=== PATIENT | male | born 1950 | race Caucasian/White ===

== ENCOUNTER 2018-09-24 08:13 | Emergency (ER) | payer MEDICARE ==
[~2018-09-24] VITALS: Ht 172.7 cm; Wt 74.8 kg
[~2018-09-24 08:13] MED LIST: ASPIRIN EC81 MG PO; FENOFIBRATE160 MG PO; FISH OIL 1,0001 EAC2 PO; LISINOPRIL10 MG PO; METFORMIN HCL500 MG PO; OMEPRAZOLE20 MG PO; VITAMIN D32000 UNIT PO
[2018-09-24] MEDS ORDERED: COZAAR25 MG PO (08:28)
[2018-09-24] MEDS ORDERED: CORMAX50 ML TOP (08:29)
[2018-09-24] MEDS ORDERED: GLIPIZIDE5 MG PO (08:31)
[2018-09-24] MEDS ORDERED: DOXYCYCLINE MO100 MG PO (08:32)
== END 2018-09-24 10:30 | disposition home or self-care (01) ==
LOC: ED 08:13
DX: R04.0 Epistaxis (principal); I10 Essential (primary) hypertension; E11.9 Type 2 diabetes mellitus without complications; Z90.49 Acquired absence of other specified parts of digestive tract; Z79.82 Long term (current) use of aspirin; Z79.84 Long term (current) use of oral hypoglycemic drugs; Z79.899 Other long term (current) drug therapy
CPT/HCPCS: 99283

== ENCOUNTER 2018-09-29 00:06 | Emergency (ER) | payer MEDICARE ==
[~2018-09-29] VITALS: Ht 172.7 cm; Wt 74.8 kg
[~2018-09-29 00:06] MED LIST changes: +CORMAX50 ML TOP; +COZAAR25 MG PO; +DOXYCYCLINE MO100 MG PO; +GLIPIZIDE5 MG PO
--- OUTSIDE RECORDS SUMMARY | 2018-09-29 00:10 | XMS ---
PreManage Notification: SARAHI GARRIDO Security Regulatory Coordinator Events No recent Security Events currently on file CRITERIA MET - [facility] - 2 Visits in 30 Days CARE PROVIDERS Fernando Morales MD PHONE: Unknown [place] has no Care Guidelines for this patient. ENika VISIT COUNT (12 MO.) 2 [facility] TOTAL 2 NOTE: Visits indicate total known visits. ED/UCC VISIT TRACKING (12 MO.) 09/29/2018 00:06 [facility] TYPE: Emergency COMPLAINT: - NOSE BLEED 09/24/2018 08:13 [facility] TYPE: Emergency COMPLAINT: - NOSE BLEED/NON INJURY DIAGNOSES: - Other terminal clerk (current) drug therapy - Epistaxis - Essential (primary) hypertension - Type 2 diabetes mellitus without complications - terminal clerk (current) use of oral hypoglycemic drugs - Acquired absence of other specified parts of digestive tract - terminal clerk (current) use of aspirin INPATIENT VISIT TRACKING (12 MO.) No inpatient visits to display in this time frame [email or web address]
[2018-09-29] MEDS ORDERED: KEFLEX500 MG PO (02:09)
== END 2018-09-29 02:38 | disposition home or self-care (01) ==
LOC: ED 00:06
PROC: 093K7ZZ Control Bleeding in Nasal Mucosa and Soft Tissue, Via Natural or Artificial Opening (ICD-10-PCS; principal; 2018-09-29)
DX: R04.0 Epistaxis (principal); I10 Essential (primary) hypertension; E11.9 Type 2 diabetes mellitus without complications; Z87.891 Personal history of nicotine dependence; Z79.84 Long term (current) use of oral hypoglycemic drugs; Z79.82 Long term (current) use of aspirin; Z79.899 Other long term (current) drug therapy
CPT/HCPCS: 30903; 80053; 85025; 85610; 85730; 99283-25

== ENCOUNTER 2024-10-20 20:00 | Inpatient (IN) | payer OTHER, MEDICARE ==
[~2024-10-20] VITALS: Ht 172.7 cm; Wt 73.1 kg
[~2024-10-20 20:00] MED LIST changes: +CLOBETASOL PROP50 ML TOP; -CORMAX50 ML TOP; +CYMBALTA60 MG PO; +HYZAAR 100-251 EACH PO; +KEFLEX500 MG PO
[2024-10-20] MEDS ORDERED: IBLOOD GLUCOSE TEST STRIP 1 EA TEST XX ONE (20:15)
[2024-10-20 20:17] LABS: HEMATOCRIT 40.8 % (35.0-50.0); HEMOGLOBIN 13.6 g/dL (12.0-18.0); MCH 25.9 (27-36); MCHC 33.4 g/dl (30-36); MCV 77.5 fl (81-99); PLATELET COUNT 168 K/uL (140-440); RBC 5.27 M/ul (4.3-5.7); RDW 17.3 (10.5-15.0)
[2024-10-20] MEDS ORDERED: ZITUVIO100 MG PO (20:17)
[2024-10-20] MEDS ORDERED: LIPITOR20 MG PO (20:17)
[2024-10-20] MEDS ORDERED: JARDIANCE25 MG PO (20:18)
[2024-10-20] MEDS ORDERED: PROSCAR5 MG PO (20:20)
[2024-10-20] MEDS ORDERED: HYDROCHLOROTHIA25 MG PO (20:22)
[2024-10-20] MEDS ORDERED: LOSARTAN POTAS100 MG PO (20:22)
[2024-10-20] MEDS ORDERED: METFORMIN HCL1000 M1 PO (20:23)
[2024-10-20] MEDS ORDERED: EPLERENONE25 MG PO (20:24)
[2024-10-20] MEDS ORDERED: VIAGRA100 MG PO (20:24)
[2024-10-20 20:36] LABS: ALBUMIN/GLOBULIN RATIO 0.65 (1.1-2.4); ANION GAP 12.9 (7-21); BILIRUBIN, TOTAL 0.4 mg/dL (0.2-1.0); BUN/CREATININE RATIO 18.86 (6.0-28.6); CALCIUM 8.5 mg/dL (8.5-10.1); CREATININE, SERUM 2.12 mg/dL (0.70-1.30); POTASSIUM 3.9 mmol/L (3.5-5.1); PROTEIN, TOTAL 7.6 g/dL (6.4-8.2)
[2024-10-20 20:40] LABS: BANDS, MANUAL DIFF 2; BASOPHILS, MANUAL DIFF 2; EOSINOPHILS, MANUAL DIFF 15; LYMPHOCYTES, MANUAL DIFF 23; MONOCYTES, MANUAL DIFF 9; NEUTROPHILS, MANUAL DIFF 49
[2024-10-20 20:42] LABS: INR 1.07 (0.80-1.30); PARTIAL THROMBOPLASTIN TIME 24.5 Sec (22.9-41.3); PROTIME 13.2 Sec (11.2-14.2)
[2024-10-20 21:11] LABS: BILIRUBIN, URINE NEGATIVE (negative); BLOOD/HGB, URINE NEGATIVE (Negative); KETONE, URINE NEGATIVE (Negative); LEUK ESTERASE, URINE NEGATIVE (negative); NITRITE, URINE NEGATIVE (negative)
[2024-10-20 21:25] LABS: AMPHETAMINES, URINE NEGATIVE (NEGATIVE); BARBITURATES, URINE NEGATIVE (NEGATIVE); BENZODIAZEPINE, URINE NEGATIVE (NEGATIVE); BUPRENORPHINE, URINE NEGATIVE (NEGATIVE); CANNABINOID, URINE NEGATIVE (NEGATIVE); COCAINE, URINE NEGATIVE (NEGATIVE); ECSTASY, URINE NEGATIVE (NEGATIVE); FENTANYL, URINE NEGATIVE (NEGATIVE); METHADONE, URINE NEGATIVE (NEGATIVE); OPIATES, URINE NEGATIVE (NEGATIVE); OXYCODONE, URINE NEGATIVE (NEGATIVE); PHENCYCLIDINE, URINE NEGATIVE (NEGATIVE)
[2024-10-20] MEDS ORDERED: LACTATED RINGER'S 1,000 ML IV ONE (21:30)
[2024-10-20] MEDS ORDERED: ASPIRIN 81 MG CHEW PO ONE (22:30)
[2024-10-20] MEDS ORDERED: CLOPIDOGREL BISULFATE 75 MG TAB PO ONE (22:30)
[2024-10-21] VITALS (8 sets, daily range): BP systolic 107–138; BP diastolic 65–76
[2024-10-21] MEDS ORDERED: ACETAMINOPHEN 325 MG TAB PO PRN ×2 (02:15→08:30)
[2024-10-21] MEDS ORDERED: ASPIRIN 325 MG TAB PO ONE (02:15)
[2024-10-21] MEDS ORDERED: ondansetron HCL 4 MG/2 ML VIAL IV PRN ×2 (02:15→08:30)
--- NOTE | 2024-10-21 04:00 | NUR ---
PATIENT ADMISSION COMPLETED. PATIENT IS ALERT AND ORIENTED X4. NIH AT THIS TIME IS 2 DUE TO (1) SLIGHT FACIAL DROOP NOTED WHEN PATIENT SMILED AND (2) FOR PATIENT HAVING SLIGHTLY SLOW SPEECH. SPEECH IS SLIGHTLY SLOW, BUT CAN BE VERY WELL UNDERSTOOD. PATIENT DENIES ANY PAIN AT THIS TIME. PATIENT IS ON TELE #1 AND IN SINUS RHYTHM, HEART TONES ARE WITH NORMAL S1-S2. PATIENT IS ON ROOM AIR AT THIS TIME, LUNG SOUNDS ARE CLEAR THROUGHOUT, CPOX AT BEDSIDE. CMS INTACT. PATIENT WITHOUT FURTHER NEEDS AT THIS TIME. CALL LIGHT AND PERSONAL BELONGINGS ARE WITHIN REACH. IV TO LAC FLUSHED WITH 10ML OF NS, DRESSING INTACT AND IV IS SALINE LOCKED.
[2024-10-21 05:43] LABS: BASOPHILS 0.7 % (0-2); EOSINOPHILS 21.6 % (0-6); HEMATOCRIT 36.3 % (35.0-50.0); HEMOGLOBIN 12.4 g/dL (12.0-18.0); LYMPHOCYTES 17.2 % (24-44); MCH 26.1 (27-36); MCHC 34.1 g/dl (30-36); MCV 76.4 fl (81-99); MONOCYTES 13.5 % (0-12); PLATELET COUNT 149 K/uL (140-440); RBC 4.75 M/ul (4.3-5.7); RDW 17.5 (10.5-15.0)
[2024-10-21 06:01] LABS: ALBUMIN 2.7 g/dL (3.4-5.0); ALBUMIN/GLOBULIN RATIO 0.69 (1.1-2.4); ANION GAP 11.9 (7-21); BILIRUBIN, TOTAL 0.4 mg/dL (0.2-1.0); BUN/CREATININE RATIO 19.76 (6.0-28.6); CALCIUM 8.8 mg/dL (8.5-10.1); CREATININE, SERUM 1.72 mg/dL (0.70-1.30); POTASSIUM 3.9 mmol/L (3.5-5.1); PROTEIN, TOTAL 6.6 g/dL (6.4-8.2)
[2024-10-21] MEDS ORDERED: Insulin Regular, Human 100 UNIT/ML ML SUB-Q SCH (07:00)
[2024-10-21] MEDS ORDERED: IBLOOD GLUCOSE TEST STRIP 1 EA TEST VI SCH ×3 (07:00→12:00)
--- NOTE | 2024-10-21 07:29 | NUR ---
RECIEVED SHIFT ASSESSMENT. PT IS RESTING IN BED, EYES CLOSED, BREATHING EVEN AND UNLABORED. CALL LIGHT IN REACH.
--- NOTE | 2024-10-21 08:14 | NUR ---
HOURLY ROUNDING. PATIENT IS CURRENLLY IN BED. BOARD HAS BEEN UPDATED AND CALL LIGHT HAS BEEN PLACED WITHIN REACH AND GLUCOSE HAS BEEN CHARTED. (119). 500ML WAS IN PATIENTS URINAL. NO REQUEST FROM PATIENT.
[2024-10-21] MEDS ORDERED: DEXTROSE 5% 1,000 ML IV PRN (08:30)
[2024-10-21] MEDS ORDERED: DEXTROSE 50% 50 ML SYR IV PRN ×2 (08:30)
[2024-10-21] MEDS ORDERED: GLUCAGON,HUMAN RECOMBINANT 1 MG/ML VIAL SUB-Q PRN (08:30)
[2024-10-21] MEDS ORDERED: IBLOOD GLUCOSE TEST STRIP 1 EA TEST XX PRN (08:30)
[2024-10-21 08:44] LABS: CHOLESTEROL/HDL RATIO 2.6
[2024-10-21] MEDS ORDERED: CLOPIDOGREL BISULFATE 75 MG TAB PO SCH (09:00)
[2024-10-21] MEDS ORDERED: ASPIRIN 325 MG TAB PO SCH (09:00)
--- NOTE | 2024-10-21 09:30 | EKG ---
[facility] [address] [facility] [facility] [place] [address] Signed Normal sinus rhythm Low voltage QRS Inferior infarct (cited on or before 20-OCT-2024) Abnormal ECG When compared with ECG of 23-SEP-2016 16:23, Sinus bradycardia is no longer present Confirmed by Kaley Sexton MD () on 10/21/2024 9:29:56 AM Electronically Signed By: KALEY SEXTON MD 10/21/24 0930 PATIENT NAME: RADHIKASARAHI Electrocardiogram DATE OF : 46 PHYSICIAN: KALEY SEXTON MD REPORT #: [id number] REPORT IS CONFIDENTIAL AND NOT TO BE RELEASED WITHOUT AUTHORIZATION
[2024-10-21] MEDS ORDERED: EMPAGLIFLOZIN 25 MG TAB PO SCH (09:42)
[2024-10-21] MEDS ORDERED: DULOXETINE HCL 60 MG CAP PO SCH (09:43)
[2024-10-21] MEDS ORDERED: FINASTERIDE 5 MG TAB PO SCH (09:43)
[2024-10-21] MEDS ORDERED: SODIUM CHLORIDE 0.9% 1,000 ML IV SCH (09:45)
--- NOTE | 2024-10-21 10:31 | NUR ---
MORNING ASSESSMENT COMPLETE. DENIES DISCOMFORT. IN CHAIR WATCHING TV. CALL LIGHT IN REACH.
--- NOTE | 2024-10-21 11:29 | NUR ---
HOURLY ROUNDING. PATIENT IS SITTING IN RECLINER. NO REQUEST OR NEED FROM PATIENT, CALL LIGHT HAS BEEN PLACED WITHIN REACH
[2024-10-21] MEDS ORDERED: PHARMACY RENAL DOSE ADJUSTMENT 1 DOSE MISC PO SCH (12:00)
[2024-10-21] MEDS ORDERED: INSULIN LISPRO 100 UNIT/ML ML SUB-Q SCH (12:00)
--- NOTE | 2024-10-21 13:40 | NUR ---
PT AWAKE IN RECLINER, DENIES NEEDS AT THIS TIME. CALL LIGHT IN REACH
--- NOTE | 2024-10-21 14:05 | NUR ---
IN TO DO VITALS, PATIENT IN CHAIR WATCHING TV, I REFILLED HIS WATER. PT DENIES ANY OTHER NEEDS AT THIS TIME. CALL LIGHT IN REACH.
--- NOTE | 2024-10-21 16:52 | NUR ---
medications reconciled with patient
--- NOTE | 2024-10-21 17:51 | NUR ---
ASSISTED PATIENT TO THE BATHROOM AND BACK TO BED. FAMILY AT BEDSIDE, DINNER TRAY AT BEDSIDE, CALL LIGHT IN REACH. PT DENIES ANY OTHER NEEDS AT THIS TIME. FAMILY MEMBER TO LEAVE FOR THE NIGHT.
--- NOTE | 2024-10-21 18:47 | NUR ---
PT RESTING IN BED, EYES CLOSED, BREATHING EVEN AND UNLABORED. CALL LIGHT IN REACH
--- NOTE | 2024-10-21 19:35 | NUR ---
REPORT RECEIVED FROM ZANE RHODES. PATIENT SITTING UP IN BED WATCHING TV. PATIENT REQUESTING TO USE BATHROOM. PATIENT UP TO BATHROOM VIA 1 PA ASSIST AND FWW. PATIENT BACK IN BED AT THIS TIME. PATIENT WITHOUT COMPLAINTS OF DIZZINESS WITH AMBULATION. PATIENT DENIES ANY PAIN AT THIS TIME. IV FLUSHED WITH 10ML OF NS, DRESSING INTACT. IV FLUIDS INFUSING CONTINUOUS AT 100ML/HR. PATIENT WITHOUT FURTHER NEEDS AT THIS TIME. CALL LIGHT AND PERSONAL BELONGINGS ARE WITHIN REACH. CPOX AT BEDSIDE.
--- NOTE | 2024-10-21 20:48 | NUR ---
MRI SCREENING FORM COMPLETE. PT AWAKE, ALERT, WATCHING TV. DENIES OTHER NEEDS. CALL LIGHT IN REACH.
[2024-10-21] MEDS ORDERED: ATORVASTATIN 40 MG TAB PO SCH (21:00)
--- NOTE | 2024-10-21 21:15 | NUR ---
PATIENT ASSESSMENT COMPLETED. PATIENT MEDICATED PER EMAR. PATIENT IS ALERT AND ORIENTED X4. PATIENT DENIES ANY PAIN AT THIS TIME. IV FLUIDS INFUSING AT 100ML/HR. PATIENT WITHOUT FURHTER NEEDS AT THIS TIME. CALL LIGHT AND PERSONAL BELONGINGS ARE WITHIN REACH.
--- NOTE | 2024-10-21 22:15 | NUR ---
ANSWERED CALL LIGHT. SBA PATIENT UP TO THE BATHROOM USING WALKER. PATIENT HAD LOOSE BM AND VOIDED UNMEASURED. PATIENT IS BACK IN BED. SCD'S AND CPOX ARE BACK ON. NO OTHER NEEDS AT THIS TIME.
--- NOTE | 2024-10-21 22:23 | NUR ---
PATIENT RESTING IN BED WATCHING TV. NEW BAG OF NS INFUSING AT THIS TIME. PATIENT WITHOUT ANY NEEDS AT THIS TIME. CALL LIGHT AND PERSONAL BELONGINGS ARE WITHIN REACH.
--- NOTE | 2024-10-21 23:09 | NUR ---
PATIENT CALLED FOR HELP. THIS RN IN ROOM TO ASSIST PATIENT. 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 PATIENT WITHOUT FURTHER NEEDS AT THIS TIME. THIS RN LET PATIENT KNOW STAFF WILL BE IN PATIENT ROOM AROUND 0200 TO WAKE PATIENT UP FOR VITAL SIGNS AND NEURO CHECK. PATIENT VERBALIZED UNDERSTANDING. CALL LIGHT AND PERSONAL BELONGINGS ARE WITHIN REACH. CPOX AT BEDSIDE.
[2024-10-22] VITALS (7 sets, daily range): BP systolic 132–149; BP diastolic 75–87
--- NOTE | 2024-10-22 01:30 | NUR ---
PATIENT REQUESTING TO USE THE BATHROOM. THIS RN AT BEDSIDE TO ASSIST PATIENT. PATIENT AMBULATED TO BATHROOM VIA 1PR ASSIST WITH THE FWW. PATIENT DENIES ANY DIZZINESS, NUMBNESS OR TINGLING. PATIENT IS ALERT AND ORIENTED X4, CMS INTACT. PATIENT BACK IN BED. IV FLUSHED WITH 10 ML OF NS, DRESSING INTACT. IV FLUIDS INFUSING CONTINUOUSLY AT 100ML/HR. PATIENT WITHOUT FURTHER NEEDS AT THIS TIME. CALL LIGHT AND PERSONAL BELONGINGS ARE WITHIN REACH. VITAL SIGNS TAKEN AND ARE STABLE AT THIS TIME.
--- NOTE | 2024-10-22 03:14 | NUR ---
PATIENT RESTING IN BED ON HIS LEFT SIDE WITH HIS EYES CLOSED. EVEN AND UNLABORED RESPIRATIONS NOTED. CALL LIGHT AND PERSONAL BELONGINGS ARE WITHIN REACH. CPOX AT BEDSIDE.
[2024-10-22 05:35] LABS: BASOPHILS 0.7 % (0-2); EOSINOPHILS 19.6 % (0-6); HEMATOCRIT 36.8 % (35.0-50.0); HEMOGLOBIN 12.3 g/dL (12.0-18.0); MCH 25.9 (27-36); MCHC 33.5 g/dl (30-36); MCV 77.3 fl (81-99); MONOCYTES 14.6 % (0-12); NEUTROPHILS 51.1 % (39-80); PLATELET COUNT 160 K/uL (140-440); RBC 4.76 M/ul (4.3-5.7); RDW 17.3 (10.5-15.0)
[2024-10-22 05:53] LABS: ALBUMIN 2.6 g/dL (3.4-5.0); ALBUMIN/GLOBULIN RATIO 0.67 (1.1-2.4); ANION GAP 9.2 (7-21); BILIRUBIN, TOTAL 0.4 mg/dL (0.2-1.0); BUN/CREATININE RATIO 18.12 (6.0-28.6); CALCIUM 8.6 mg/dL (8.5-10.1); CREATININE, SERUM 1.49 mg/dL (0.70-1.30); PHOSPHORUS, INORGANIC 3.1 mg/dL (2.5-4.9); POTASSIUM 4.2 mmol/L (3.5-5.1); PROTEIN, TOTAL 6.5 g/dL (6.4-8.2)
--- NOTE | 2024-10-22 06:14 | NUR ---
PATIENT RESTING IN BED WITH EYES CLOSED. EVEN AND UNLABORED RESPIRATIONS NOTED. IV PUMP CLEARED. CALL LIGHT AND PERSONAL BELONGINGS ARE WITHIN REACH.
--- NOTE | 2024-10-22 07:22 | NUR ---
RECIEVED SHIFT REPORT. PT AWAKE IN BED, DENIES NEEDS. CALL LIGHT IN REACH.
--- NOTE | 2024-10-22 08:38 | NUR ---
HOURLY ROUNDING. PATIENT CAME BACK FROM MRI, HES BEEN PROPERLY CONTECT TO CPOX, AND PUT BACK ON TELE (CHARGE NURSE DID TELEMONITOR) BOARD UPDATED GLUCOSE HAS BEEN TAKEN AND DOCUMENTED (141) NO REQUEST FROM PATIENT AT THIS TIME
[2024-10-22] MEDS ORDERED: ASPIRIN 81 MG CHEW PO SCH (09:00)
--- NOTE | 2024-10-22 09:23 | NUR ---
PT AWAKE IN BED, DENIES DISCOMPRT. CALL LIGHT IN REACH. TELE PLACED BACK ON FROM MRI. RECONNECTED TO IVF.
--- NOTE | 2024-10-22 10:31 | NUR ---
PT AWAKE IN BED, WATCHING TV. DENIES NEEDS. CALL LIGHT IN REACH
--- NOTE | 2024-10-22 12:21 | NUR ---
HOURLY ROUNDING. PATIENT WAS ASSISTED FROM BED TO BATHROOM. PATIENT DECLINED EATING IN HIS CHAIR AGAIN FROM THIS MORNING. PATIENT IS EATING LUNCH WHILE IN BED. NO REQUEST AT THIS TIME FOR PATIENT
--- NOTE | 2024-10-22 12:26 | NUR ---
PT EATING LUNCH, WATCHING TV. DENIES NEEDS. CALL LIGHT IN REACH
[2024-10-22] MEDS ORDERED: ASPIRIN81 MG PO (13:08)
[2024-10-22] MEDS ORDERED: LIPITOR40 MG PO (13:08)
[2024-10-22] MEDS ORDERED: CLOPIDOGREL75 MG PO (13:08)
--- NOTE | 2024-10-22 13:12 | NUR ---
UR CLINICAL REVIEW: [facility] [place] INPATIENT FOR CVA WITH NEED FOR FURTHER IMAGING AND MONITORING [facility] INPT 10/21/24 @ 0825 ORDER MATCHES REG NO AURTH REQUIRED PER [place] GUIDELINES. CLINICALS FAXED PER [place] REQUEST. DISCHARGE TO HOME WHEN STABLE.HAS OUTPATIENT FOLLOW UP WITH VASCULAR SURGEON
--- NOTE | 2024-10-22 13:13 | NUR ---
UR CLINICAL REVIEW: [facility] [place] MEETS INPATIENT FOR CVA WITH NEED FOR FURTHER IMAGING AND MONITORING [facility] INPT 10/21/24 @ 0825 ORDER MATCHES REG NO AURTH REQUIRED PER [place] GUIDELINES. CLINICALS FAXED PER [place] REQUEST. DISCHARGE TO HOME WHEN STABLE.HAS OUTPATIENT FOLLOW UP WITH VASCULAR SURGEON
--- NOTE | 2024-10-22 13:19 | NUR ---
ALERT AND ORIENTED IN BED. STATES HE LIVES IN HOUSE, 2 STEPS TO GET INSIDE. NO ISSUES WITH THESE STEPS. DEMOGRAPHICS VERIFIED WITH PATIENT. HE HAS NO DME. HE DRIVES. HAS NO DIFFICULTY PAYING UTILITIES OR FOR FOOD OR MEDICATIONS. DENIES ANY CM NEEDS AT THIS TIME. PLAN TO DC TO HOME THIS AFTERNOON.
--- NOTE | 2024-10-22 14:18 | NUR ---
PT NOT AVAIALBLE FOR VISIT. PROVIDED PRAYER.
[2024-10-23] MEDS ORDERED: PANTOPRAZOLE SODIUM 40 MG TABEC PO SCH (09:00)
== END 2024-10-22 14:27 | disposition home or self-care (01) | DRG 65 ==
LOC: ED 20:00 → MS 10-21 02:09
PROVIDERS: Family Medicine; ADMIT Family Medicine; ATTEND Family Medicine
DX: I63.9 Cerebral infarction, unspecified (principal); G81.94 Hemiplegia, unspecified affecting left nondominant side; N17.9 Acute kidney failure, unspecified; Z87.891 Personal history of nicotine dependence; E11.22 Type 2 diabetes mellitus with diabetic chronic kidney disease; N18.9 Chronic kidney disease, unspecified; N40.0 Benign prostatic hyperplasia without lower urinary tract symptoms; K21.9 Gastro-esophageal reflux disease without esophagitis; F39 Unspecified mood [affective] disorder; I12.9 Hypertensive chronic kidney disease with stage 1 through stage 4 chronic kidney disease, or unspecified chronic kidney disease; Z90.89 Acquired absence of other organs; Z98.52 Vasectomy status; Z98.890 Other specified postprocedural states; Z79.84 Long term (current) use of oral hypoglycemic drugs; Z79.899 Other long term (current) drug therapy
CPT/HCPCS: 36415; 70450; 70496; 70498; 70551; 71045; 80053; 80061; 80307; 81003; 83036; 83735; 84100; 84484; 85025; 85610; 85730; 93005; 93010; 93306; 94762; 97161; 97530; 99285-25; A9270; J1815; J7030; J7121; Q3014; Q9967